=== PATIENT | female | born 1985 | race Caucasian/White ===

== ENCOUNTER 2021-01-22 13:02 | Observation (INO) ==
[2021-01-22] MEDS ORDERED: SODIUM CHLORIDE 0.9% 1,000 ML IV STA ×2 (13:30→22:33)
[2021-01-22] MEDS ORDERED: ACETAMINOPHEN 500 MG TABLET PO STA (13:31)
[2021-01-22] MEDS ORDERED: ONDANSETRON 4 MG/2 ML VIAL IV ONE ×2 (13:31→16:58)
[2021-01-22] MEDS ORDERED: HYDROmorphone 2 MG/1 ML VIAL IV STA ×3 (13:31→22:32)
[2021-01-22 14:23] LABS: Basophils % 0.1 % (0.0-0.8); Eosinophils # 0.2 10*3/uL (0.0-0.87); Eosinophils % 1.9 % (0.00-10.9); Hematocrit 39.9 VOL% (35.7-47.0); Hemoglobin 12.9 GM/DL (12.0-16.0); Immature Granulocytes % 0.3 %; Immature Granulocytes Absolute 0.03 #; Lymphocytes # 0.4 10*3/uL (1.4-4.0); Lymphocytes % 3.5 % (21.3-54.2); Mean Corpuscular HGB Conc 32.3 GM/DL (32-36); Mean Corpuscular Volume 88.1 FL (87-102); Mean Platelet Volume 10.9 FL (9.6-12.0); Monocytes % 5.9 % (1.7-12.7); Neutrophils % 88.3 % (38.7-73.9); Platelet Count 268 T/CUMM (130-400); Red Blood Count 4.53 MC/CUMM (3.8-5.5); Red Cell Distribution Width 12.8 % (9.3-17.3); White Blood Count 10.8 T/CUMM (4-12)
[2021-01-22 14:30] LABS: Bilirubin,Urine Negative (Negative); Blood, Urine Negative (Negative); Glucose,Urine (UA) Negative (Negative); Ketones,Urine Negative (Negative); Mucus,Urine Occasional /LPF (Occasional); Nitrite,Urine Negative (Negative); Protein,Urine Negative; RBC,Urine 1 /HPF (0-4); Squamous Epithelial Cell,Urine Occasional /HPF (0-10); Urine Appearance CLEAR (Clear); Urine Color Yellow (Yellow); Urine Specific Gravity 1.013 (1.001-1.035); Urine Urobilinogen < 2.0 EU/DL (0.2-1.0)
[2021-01-22 14:45] LABS: Albumin 3.9 G/DL (3.4-5.0); Bilirubin,Total 0.9 MG/DL (0.20-1.00); Calcium 8.7 MG/DL (8.5-10.1); Potassium 3.4 MMOL/L (3.5-5.1); Total Protein 7.7 G/DL (6.4-8.2)
[2021-01-22] MEDS ORDERED: IBUPROFEN 600 MG TABLET ONE (14:54)
[2021-01-22] MEDS ORDERED: IBUPROFEN 600 MG TABLET PO STA (15:07)
[2021-01-22] MEDS ORDERED: KETOROLAC 30 MG/1 ML VIAL IV STA (20:05)
[2021-01-22] MEDS ORDERED: ZALEPLON 5 MG CAPSULE PO PRN (22:57)
[2021-01-22] MEDS ORDERED: MAGNESIUM SULF RIDER 2 GM/50 ML PREMIX IV PRN (22:57)
[2021-01-22] MEDS ORDERED: DEXTROSE 50% 25 GM/50 ML VIAL IV PRN (22:57)
[2021-01-22] MEDS ORDERED: GLUCAGON 1 MG VIAL IM PRN (22:57)
[2021-01-22] MEDS ORDERED: ONDANSETRON 4 MG/2 ML VIAL IV PRN (22:57)
[2021-01-22] MEDS ORDERED: MAGNESIUM SULF RIDER 4 GM/100 ML PREMIX IV PRN (22:57)
[2021-01-23] MEDS: SODIUM CHLORIDE 0.9% 1,000 ML IV SCH ×3 (01:02→21:50)
[2021-01-23] MEDS: ENOXAPARIN 40 MG/0.4 ML SYRINGE SUBCUT SCH ×2 (01:03→22:00)
[2021-01-23] MEDS: HYDROmorphone 2 MG/1 ML VIAL IV PRN ×2 (03:50→07:35)
[2021-01-23] MEDS: POTASSIUM CHLORIDE RIDER 10 MEQ/100 ML PREMIX IV PRN ×3 (03:50→05:43)
[2021-01-23 06:33] LABS: Basophils % 0.2 % (0.0-0.8); Eosinophils # 0.3 10*3/uL (0.0-0.87); Eosinophils % 4.8 % (0.00-10.9); Hematocrit 36.2 VOL% (35.7-47.0); Hemoglobin 11.8 GM/DL (12.0-16.0); Immature Granulocytes % 0.5 %; Immature Granulocytes Absolute 0.03 #; Lymphocytes # 0.5 10*3/uL (1.4-4.0); Lymphocytes % 7.8 % (21.3-54.2); Mean Corpuscular HGB Conc 32.6 GM/DL (32-36); Mean Corpuscular Volume 89.2 FL (87-102); Mean Platelet Volume 11.4 FL (9.6-12.0); Monocytes % 10.4 % (1.7-12.7); Neutrophils % 76.3 % (38.7-73.9); Platelet Count 245 T/CUMM (130-400); Red Blood Count 4.06 MC/CUMM (3.8-5.5); Red Cell Distribution Width 12.8 % (9.3-17.3); White Blood Count 6.6 T/CUMM (4-12)
[2021-01-23 07:02] LABS: Calcium 8.1 MG/DL (8.5-10.1); Osmolality,Calculated 272.7 MOS/KG (273-304); Potassium 3.4 MMOL/L (3.5-5.1)
[2021-01-23] MEDS: DOCUSATE SODIUM 100 MG CAPSULE PO SCH ×2 (11:51→21:52)
[2021-01-23 17:33] LABS: Basophils % 0.1 % (0.0-0.8); Eosinophils # 0.4 10*3/uL (0.0-0.87); Hematocrit 34.5 VOL% (35.7-47.0); Hemoglobin 10.9 GM/DL (12.0-16.0); Immature Granulocytes % 0.4 %; Immature Granulocytes Absolute 0.03 #; Lymphocytes # 1.1 10*3/uL (1.4-4.0); Lymphocytes % 15.8 % (21.3-54.2); Mean Corpuscular HGB Conc 31.6 GM/DL (32-36); Mean Corpuscular Volume 90.6 FL (87-102); Mean Platelet Volume 10.8 FL (9.6-12.0); Monocytes % 11.1 % (1.7-12.7); Neutrophils % 67.6 % (38.7-73.9); Platelet Count 226 T/CUMM (130-400); Red Blood Count 3.81 MC/CUMM (3.8-5.5); Red Cell Distribution Width 12.9 % (9.3-17.3); White Blood Count 7.2 T/CUMM (4-12)
[2021-01-24 05:28] LABS: Basophils % 0.2 % (0.0-0.8); Eosinophils # 0.4 10*3/uL (0.0-0.87); Hematocrit 32.3 VOL% (35.7-47.0); Hemoglobin 10.6 GM/DL (12.0-16.0); Immature Granulocytes % 0.4 %; Immature Granulocytes Absolute 0.02 #; Lymphocytes # 1.4 10*3/uL (1.4-4.0); Mean Corpuscular HGB Conc 32.8 GM/DL (32-36); Mean Corpuscular Volume 88.7 FL (87-102); Mean Platelet Volume 10.8 FL (9.6-12.0); Monocytes % 17.5 % (1.7-12.7); Neutrophils % 42.9 % (38.7-73.9); Platelet Count 204 T/CUMM (130-400); Red Blood Count 3.64 MC/CUMM (3.8-5.5); Red Cell Distribution Width 12.8 % (9.3-17.3); White Blood Count 4.6 T/CUMM (4-12)
[2021-01-24 05:45] LABS: Calcium 7.9 MG/DL (8.5-10.1); Osmolality,Calculated 273.5 MOS/KG (273-304); Potassium 3.6 MMOL/L (3.5-5.1)
[2021-01-24 05:56] LABS: Eosinophils 9 % (0-10); Hypochromasia 1+; Lymphocytes 32 % (20-55); Microcytosis 1+; Platelet Estimate Adequate; Segmented Neutrophils 43 % (50-85); Total Cells Counted 100
[2021-01-24] MEDS: PIPERACILLIN/TAZOBACTAM 3,375 MG in SODIUM CHLORIDE 0.9% 100 ML IV SCH ×2 (09:12→21:10)
[2021-01-24] MEDS: HYDROmorphone 2 MG/1 ML VIAL IV PRN ×2 (09:12→12:13)
[2021-01-24] MEDS: DOCUSATE SODIUM 100 MG CAPSULE PO SCH ×2 (10:29→21:10)
[2021-01-24] MEDS: SODIUM CHLORIDE 0.9% 1,000 ML IV SCH ×2 (10:59→19:41)
[2021-01-24] MEDS ORDERED: PIPERACILLIN/TAZOBACTAM 2,250 MG in SODIUM CHLORIDE 0.9% 100 ML IV SCH (21:00)
[2021-01-24] MEDS: ENOXAPARIN 40 MG/0.4 ML SYRINGE SUBCUT SCH (22:18)
[2021-01-25] MEDS: SODIUM CHLORIDE 0.9% 1,000 ML IV SCH (01:49)
[2021-01-25] MEDS: PIPERACILLIN/TAZOBACTAM 3,375 MG in SODIUM CHLORIDE 0.9% 100 ML IV SCH ×2 (05:02→15:58)
[2021-01-25 05:23] LABS: Basophils % 0.5 % (0.0-0.8); Eosinophils # 0.4 10*3/uL (0.0-0.87); Eosinophils % 10.1 % (0.00-10.9); Hematocrit 31.9 VOL% (35.7-47.0); Hemoglobin 10.3 GM/DL (12.0-16.0); Immature Granulocytes % 0.3 %; Immature Granulocytes Absolute 0.01 #; Lymphocytes # 1.9 10*3/uL (1.4-4.0); Lymphocytes % 48.3 % (21.3-54.2); Mean Corpuscular HGB Conc 32.3 GM/DL (32-36); Mean Corpuscular Volume 89.4 FL (87-102); Mean Platelet Volume 11.2 FL (9.6-12.0); Monocytes % 12.5 % (1.7-12.7); Neutrophils % 28.3 % (38.7-73.9); Platelet Count 239 T/CUMM (130-400); Red Blood Count 3.57 MC/CUMM (3.8-5.5); Red Cell Distribution Width 12.8 % (9.3-17.3); White Blood Count 3.9 T/CUMM (4-12)
[2021-01-25 05:48] LABS: Calcium 7.9 MG/DL (8.5-10.1); Potassium 3.4 MMOL/L (3.5-5.1)
[2021-01-25 06:05] LABS: Eosinophils 6 % (0-10); Lymphocytes 53 % (20-55); Platelet Estimate Normal; Segmented Neutrophils 29 % (50-85); Total Cells Counted 100
[2021-01-25] MEDS: POTASSIUM CHLORIDE RIDER 10 MEQ/100 ML PREMIX IV PRN (06:24)
[2021-01-25] MEDS ORDERED: LACTATED RINGERS 1,000 ML IV SCH (10:00)
[2021-01-25] MEDS ORDERED: MIDAZOLAM 2 MG/2 ML VIAL ONE (10:50)
[2021-01-25] MEDS ORDERED: fentaNYL 100 MCG/2 ML VIAL ONE (11:06)
[2021-01-25] MEDS: DOCUSATE SODIUM 100 MG CAPSULE PO SCH (11:32)
[2021-01-25] MEDS ORDERED: ONDANSETRON 4 MG/2 ML VIAL ONE (12:03)
[2021-01-25] MEDS ORDERED: ACETAMINOPHEN INJ 1,000 MG/100 ML VIAL IV ONE (12:03)
[2021-01-25] MEDS ORDERED: ROCURONIUM 50 MG/5 ML VIAL IV ONE (12:03)
[2021-01-25] MEDS ORDERED: LIDOCAINE 2% 5 ML VIAL ONE (12:03)
[2021-01-25] MEDS ORDERED: SEVOFLURANE 1 UNIT/15 MINUTE INH ONE (12:03)
[2021-01-25] MEDS ORDERED: propofoL 200 MG/20 ML VIAL IV ONE (12:03)
[2021-01-25] MEDS ORDERED: DEXAMETHASONE 4 MG/1 ML VIAL ONE (12:03)
[2021-01-25] MEDS ORDERED: LACTATED RINGERS 1,000 ML IV ONE (12:15)
[2021-01-25] MEDS ORDERED: SUGAMMADEX 200 MG/2 ML VIAL IV ONE (12:18)
[2021-01-25] MEDS ORDERED: TISSUE ADHESIVE 1 EACH APPLICATOR TOP ONE (12:22)
[2021-01-25] MEDS ORDERED: SUCCINYLCHOLINE 200 MG/10 ML VIAL ONE (12:23)
[2021-01-25] MEDS: HYDROmorphone 2 MG/1 ML VIAL IV PRN ×2 (12:54→13:05)
[2021-01-25] MEDS ORDERED: ONDANSETRON 4 MG/2 ML VIAL IV PRN (13:04)
[2021-01-25] MEDS ORDERED: MEPERIDINE 25 MG/1 ML VIAL ONE (13:21)
[2021-01-25] MEDS ORDERED: MEPERIDINE 25 MG/1 ML VIAL IV ONE (13:27)
[2021-01-25 14:09] VITALS: BP 155/92
== END 2021-01-25 15:51 | disposition home or self-care (01) ==
LOC: N.ED 13:02 → N.EDINP 13:02 → SUATTDRO 22:57 → N.3E 01-23 00:15
PROVIDERS: ADMIT Emergency Medicine; ATTEND Internal Medicine